=== PATIENT | male | born 2000 | race Hispanic/Latino ===

== ENCOUNTER 2025-04-19 09:23 | Emergency (ER) | payer SELFPAY ==
[2025-04-19] MEDS ORDERED: Ondansetron PF 4 MG/2 ML Vial ONE (09:38)
== END 2025-04-19 11:01 | disposition home or self-care (01) ==
LOC: CSHERS 09:23
DX: R11.2 Nausea with vomiting, unspecified (principal)
CPT/HCPCS: 96361; 96374